=== PATIENT | female | born 1945 | race Caucasian/White ===

== ENCOUNTER 2017-03-15 14:29 | Inpatient (IN) ==
[2017-03-15] MEDS ORDERED: NUCYNTA 50 MG PO PRN (19:03)
[2017-03-15] MEDS ORDERED: Nitroglycerin 0.4 MG TAB.SUBL SL PRN (19:03)
[2017-03-15] MEDS: *HR* HYDROcodone/Acet 10/325 mg TABLET PO PRN (20:44)
[2017-03-16] MEDS: *HR* HYDROcodone/Acet 10/325 mg TABLET PO PRN ×4 (03:15→22:49)
[2017-03-16 05:22] LABS: INR 1.1; Prothrombin Time 12.2 Seconds (9.4-12.1)
[2017-03-16 05:27] LABS: Basophils % 0.1 %; Eosinophils # 0.1 K/mcL (0.0-0.6); Eosinophils % 0.9 %; Hematocrit 32.5 % (35.3-44.9); Hemoglobin 10.4 g/dL (11.5-15.4); Immature Granulocytes % 0.4 % (0-4); Lymphocytes # 2.7 K/mcL (0.6-4.6); Lymphocytes % 19.5 %; Mean Corpuscular Hemoglobin 31.4 pg (28.0-33.3); Mean Corpuscular Volume 98.2 fL (83.0-100.0); Mean Platelet Volume 9.3 fL (9.4-12.4); Platelet Count 194 K/mcL (140-400); Red Blood Count 3.31 M/mcL (3.82-4.97); Red Cell Distribution Width 15.9 % (11.5-14.5); Segmented Neutrophils % 72.1 %
[2017-03-16 05:32] LABS: Calcium 8.8 mg/dL (8.6-10.8); Potassium 4.3 mEq/L (3.5-4.5)
[2017-03-16] MEDS: Isosorbide MONOnitrate (24 HR) 30 MG TAB.ER.24H PO SCH (08:16)
[2017-03-16] MEDS: Multivit/Ca/Min/Fe/FA 1 TAB TABLET PO SCH (08:16)
[2017-03-16] MEDS: FISH OIL PO SCH (08:17)
[2017-03-16] MEDS: FLAX PO SCH (08:17)
[2017-03-16] MEDS: Aspirin Enteric Coated 81 MG Tablet PO SCH (08:17)
[2017-03-16] MEDS: [UNRECOGNIZED DRUG - OTHER] PO SCH (08:17)
[2017-03-16] MEDS: Ascorbic Acid 500 MG TABLET PO SCH (08:17)
[2017-03-16] MEDS: BORAGE PO SCH (08:17)
--- NOTE | 2017-03-16 14:43 | Internal Med History&Physical ---
Date of Encounter: 03/16/17 Time of Encounter: 14:41 Assessment and Plan (1) History of total hip replacement Current visit: Yes Status: Acute Asians here for rehabilitation. So far so good patient is stable Qualifiers: Laterality: right Qualified Code(s): Z96.641 - Presence of right artificial hip joint Internal Medicine - H&P: HPI Chief complaint: Patient had a right total hip replacement for OA Admitted From: Hospital to Hospital Transfer Plans for Post Hospital Care: Home History of present illness: Ms. Wilson is a 72 year old female Patient's had a long history of pain and had previously done I think in 2016 Past Med Surg Social Fam HX - Past Medical History Attestation: No The following information was validated with the patient. Medical history: coronary artery disease, GERD, hyperlipidemia, hypertension, osteoporosis, renal disease Psychiatric history: no psych history - Past Surgical History Surgical History: cholecystectomy, orthopedic, other - Social History Smoking Status: Never smoker Smokeless Tobacco Status: Yes Alcohol use: none Drug use: none - Family History Mother Living Status: Still Living Hx Family Neurologic Disorders: Yes (alzheimers) Internal Medicine - H&P: Meds Clopidogrel [Plavix] 75 mg PO DAILY 08/20/15 [History] Cyclobenzaprine [Flexeril] 10 mg PO TID 08/20/15 [History] Lansoprazole [Prevacid] 30 mg PO DAILY 08/20/15 [History] Zolpidem [Ambien] 10 mg PO HS PRN 08/20/15 [History] Atorvastatin [Lipitor] 40 mg PO HS 08/21/15 [History] Hydrocodone/Acetaminophen [[place] 10-325 Tablet] 1 tab PO Q6H PRN 08/21/15 [ History] Lisinopril [Zestril] 10 mg PO DAILY 08/21/15 [History] Metoprolol [Lopressor] 25 mg PO DAILY 08/21/15 [History] Nitroglycerin 0.4 mg SL PRN PRN 08/21/15 [History] Isosorbide MONOnitrate (24 HR) [Imdur] 30 mg PO DAILY 11/12/15 [History] Ascorbic Acid [Vitamin C] 1,000 mg PO DAILY 02/28/17 [History] Aspirin [Lo-Dose Aspirin EC] 81 mg PO DAILY 02/28/17 [History] Calcium Carbonate/Vitamin D3 [Calcium 600 + Vit D Tablet] 2 each PO DAILY [History] Diclofenac Sodium [Voltaren] 1 applic TP QID 02/28/17 [History] Fish Oil/Borage/Flax/Om3,6,9#1 [[place] 3-6-9 1,200 mg Softgel] 2 tab PO DAILY 02/11 [History] Multivit-Min/Iron/Folic/Lutein [Centrum Silver Women Tablet] 2 each PO DAILY 02/11 [History] Vitamin E Acetate [Vitamin E] 400 unit PO DAILY 02/28/17 [History] Tapentadol HCl [Nucynta] 50 mg PO Q4HR PRN 03/15/17 [History] Allergies Oxycodone Allergy (Verified 08/20/15 16:49) Vomiting Penicillins [PCN] Allergy (Verified 08/20/15 16:49) Rash All Systems PM: A 10-system review of systems was performed and is negative for pertinent findings except as documented above in the HPI. - Constitutional Vitals: Temp Pulse Resp BP Pulse Ox 98.4 F 77 16 106/62 95 03/16/17 11:00 03/16/17 11:00 03/16/17 11:00 03/16/17 11:00 03/16/17 11:00 - Head Head exam: Present: atraumatic, normocephalic - Neck Neck exam general surgery: Present: supple, trachea midline. Absent: lymphadenopathy - Respiratory Respiratory exam: Present: CTAB. Absent: accessory muscle use, rales, rhonchi, wheezes - Cardiovascular Cardiovascular exam: Present: RRR, +S1, +S2. Absent: diastolic murmur, gallop, rubs, systolic murmur - GI/Abdominal GI/Abdominal exam: Present: normal bowel sounds, soft (Patient had positive BM and also appetite is fairly good), no peritoneal signs. Absent: distended, tenderness Internal Med - H&P Results - Labs CBC & Chem 7: 03/16/17 04:50 03/16/17 04:50 Labs: Short CBC 03/16/17 Range/Units 04:50 WBC 13.9 H (4.3-11.1) K/mcL Hgb 10.4 L (11.5-15.4) g/dL Hct 32.5 L (35.3-44.9) % Plt Count 194 (140-400) K/mcL Neutrophils # 10.0 H (1.6-8.9) K/mcL BMP 03/16/17 04:50 Sodium 136 Potassium 4.3 Chloride 104 Carbon Dioxide 19 BUN 22 H Creatinine 1.25 H Glucose 99 Calcium 8.8 Labs look stable Will follow - VTE Documentation of Mechanical Device: Venous foot pump, device
--- NOTE | 2017-03-16 15:04 | Physcial Medicine-Consult Note ---
Date of Encounter: 03/16/17 Time of Encounter: 15:00 Physical Medicine - AP (1) History of total hip replacement Status: Acute Assessment and plan: 1. Ms. Wilson will continue with intensive PT/OT/TR. Her pain is a barrier to rehab. I suspect that she is suffering from a groin strain. We will have therapy apply heat to the adductor muscles prior to therapy. 2. DVT prophylaxis: continue with aspirin per her surgeons protocol. SCDs in place. 3. Pain: continue with norco as needed for pain. Code(s): Z96.649 - Presence of unspecified artificial hip joint SNOMED Code(s) : 847560138689 Physical Medicine - HPI - Data of Consult Consult date: 03/16/17 Requesting Physician: Carlton Zimmerman DO Primary Care Provider: Malik Grant DO - Consult Narrative Reason for consult: s/p left YANETH History of present illness: Ms. Wilson is a 72 year old female who was admitted for inpatient rehabilitation following a left total hip arthroplasty secondary to left hip osteoarthritis. She is complaining of pain in the left hip. No other complaints. CC: Carlton Zimmerman DO Past Med Surg Social Fam HX - Past Medical History Medical history: coronary artery disease, GERD, hyperlipidemia, hypertension, osteoporosis, renal disease Psychiatric history: no psych history - Past Surgical History Surgical History: cholecystectomy, orthopedic, other - Social History Smoking Status: Never smoker Smokeless Tobacco Status: Yes Alcohol use: none Drug use: none - Family History Mother Living Status: Still Living Hx Family Neurologic Disorders: Yes (alzheimers) Medications and Allergies Clopidogrel [Plavix] 75 mg PO DAILY 08/20/15 [History] Cyclobenzaprine [Flexeril] 10 mg PO TID 08/20/15 [History] Lansoprazole [Prevacid] 30 mg PO DAILY 08/20/15 [History] Zolpidem [Ambien] 10 mg PO HS PRN 08/20/15 [History] Atorvastatin [Lipitor] 40 mg PO HS 08/21/15 [History] Hydrocodone/Acetaminophen [[place] 10-325 Tablet] 1 tab PO Q6H PRN 08/21/15 [ History] Lisinopril [Zestril] 10 mg PO DAILY 08/21/15 [History] Metoprolol [Lopressor] 25 mg PO DAILY 08/21/15 [History] Nitroglycerin 0.4 mg SL PRN PRN 08/21/15 [History] Isosorbide MONOnitrate (24 HR) [Imdur] 30 mg PO DAILY 11/12/15 [History] Ascorbic Acid [Vitamin C] 1,000 mg PO DAILY 02/28/17 [History] Aspirin [Lo-Dose Aspirin EC] 81 mg PO DAILY 02/28/17 [History] Calcium Carbonate/Vitamin D3 [Calcium 600 + Vit D Tablet] 2 each PO DAILY [History] Diclofenac Sodium [Voltaren] 1 applic TP QID 02/28/17 [History] Fish Oil/Borage/Flax/Om3,6,9#1 [[place] 3-6-9 1,200 mg Softgel] 2 tab PO DAILY 02/11 [History] Multivit-Min/Iron/Folic/Lutein [Centrum Silver Women Tablet] 2 each PO DAILY 02/11 [History] Vitamin E Acetate [Vitamin E] 400 unit PO DAILY 02/28/17 [History] Tapentadol HCl [Nucynta] 50 mg PO Q4HR PRN 03/15/17 [History] Allergies Oxycodone Allergy (Verified 08/20/15 16:49) Vomiting Penicillins [PCN] Allergy (Verified 08/20/15 16:49) Rash - Constitutional Constitutional: Absent: anorexia, chills, fatigue - Cardiovascular Cardiovascular: Absent: chest pain, chest pain with activity, diaphoresis - Respiratory Respiratory: Absent: dyspnea - Gastrointestinal Gastrointestinal: Absent: constipation - Genitourinary Genitourinary: Absent: urinary incontinence - Musculoskeletal Musculoskeletal: Present: as per HPI, myalgias - Neurological Neurological: Absent: dizziness - Psychiatric Psychiatric: Absent: hallucinations Physical Medicine - Exam - Constitutional Vitals: Temp Pulse Resp BP Pulse Ox 98.4 F 77 16 106/62 95 03/16/17 11:00 03/16/17 11:00 03/16/17 11:00 03/16/17 11:00 03/16/17 11:00 - Head Head exam: Present: atraumatic, normal inspection - Respiratory Respiratory exam: Present: CTAB - Cardiovascular Cardiovascular exam: Present: RRR - GI/Abdominal GI/Abdominal exam: Present: normal bowel sounds, soft. Absent: tenderness - Extremities Exam Extremities exam: Absent: calf tenderness (Right hip incision with flor intact, no erythema, no drainage, no significant ecchymosis, motor strength 5/5) Physical Medicine - Results - Labs CBC & Chem 7: 03/16/17 04:50 03/16/17 04:50 Labs: Short CBC 03/16/17 Range/Units 04:50 WBC 13.9 H (4.3-11.1) K/mcL Hgb 10.4 L (11.5-15.4) g/dL Hct 32.5 L (35.3-44.9) % Plt Count 194 (140-400) K/mcL Neutrophils # 10.0 H (1.6-8.9) K/mcL BMP 03/16/17 04:50 Sodium 136 Potassium 4.3 Chloride 104 Carbon Dioxide 19 BUN 22 H Creatinine 1.25 H Glucose 99 Calcium 8.8 Consult Discharge Plan - Plan Referrals: Malik Grant DO [Primary Care Provider] -
[2017-03-17] MEDS: *HR* HYDROcodone/Acet 10/325 mg TABLET PO PRN ×4 (05:11→22:14)
[2017-03-17] MEDS: Ascorbic Acid 500 MG TABLET PO SCH (09:26)
[2017-03-17] MEDS: [UNRECOGNIZED DRUG - OTHER] PO SCH (09:27)
[2017-03-17] MEDS: Multivit/Ca/Min/Fe/FA 1 TAB TABLET PO SCH (09:27)
[2017-03-17] MEDS: FISH OIL PO SCH (09:27)
[2017-03-17] MEDS: FLAX PO SCH (09:27)
[2017-03-17] MEDS: BORAGE PO SCH (09:27)
[2017-03-17] MEDS: Isosorbide MONOnitrate (24 HR) 30 MG TAB.ER.24H PO SCH (09:27)
[2017-03-17] MEDS: Aspirin Enteric Coated 81 MG Tablet PO SCH (09:27)
--- NOTE | 2017-03-17 14:25 | Internal Med Progress Note ---
Date of Encounter: 03/17/17 Time of Encounter: 14:23 - Assessment and plan (1) History of total hip replacement Current Visit: Yes Status: Acute Assessment and plan: Surgeon's clinic Qualifiers: Laterality: right Qualified Code(s): Z96.641 - Presence of right artificial hip joint - Time Spent With Patient less than 15 minutes - Subjective Interval history: Only complaint is pain - Constitutional Vitals: Temp Pulse Resp BP Pulse Ox 97.0 F L 90 16 116/58 94 03/17/17 07:06 03/17/17 13:06 03/17/17 13:06 03/17/17 13:06 03/17/17 13:06 - Head Head exam: Present: atraumatic, normal inspection, normocephalic - Neck Neck exam general surgery: Present: supple, trachea midline. Absent: lymphadenopathy - Respiratory Respiratory exam: Present: CTAB. Absent: accessory muscle use, rales, rhonchi, wheezes - Cardiovascular Cardiovascular exam: Present: RRR, +S1, +S2. Absent: diastolic murmur, gallop, rubs, systolic murmur Internal Medicine: Result - Labs CBC & Chem 7: 03/16/17 04:50 03/16/17 04:50 Labs: Actually looks pretty good - ABG Interpretation ABG results: PT/INR, D-dimer PT 12.2 Seconds (9.4-12.1) H 03/16/17 04:50 - VTE Documentation of Mechanical Device: Graduated compression elastic hosiery Consult Discharge Plan - Plan Referrals: Malik Grant DO [Primary Care Provider] -
[2017-03-18] MEDS: *HR* HYDROcodone/Acet 10/325 mg TABLET PO PRN ×5 (04:31→22:21)
[2017-03-18] MEDS: Isosorbide MONOnitrate (24 HR) 30 MG TAB.ER.24H PO SCH (08:22)
[2017-03-18] MEDS: Ascorbic Acid 500 MG TABLET PO SCH (08:22)
[2017-03-18] MEDS: Aspirin Enteric Coated 81 MG Tablet PO SCH (08:22)
[2017-03-18] MEDS: Multivit/Ca/Min/Fe/FA 1 TAB TABLET PO SCH (08:22)
[2017-03-18] MEDS: FLAX PO SCH (08:23)
[2017-03-18] MEDS: [UNRECOGNIZED DRUG - OTHER] PO SCH (08:23)
[2017-03-18] MEDS: FISH OIL PO SCH (08:23)
[2017-03-18] MEDS: BORAGE PO SCH (08:23)
--- NOTE | 2017-03-18 14:16 | Internal Med Progress Note ---
Date of Encounter: 03/18/17 Time of Encounter: 14:15 - Assessment and plan (1) History of total hip replacement Current Visit: Yes Status: Acute Assessment and plan: Patient is working with a therapist . Qualifiers: Laterality: right Qualified Code(s): Z96.641 - Presence of right artificial hip joint - Time Spent With Patient less than 15 minutes - Subjective Interval history: Only complaint is pain. Pain is improved patient looks good cooperating fully with the therapist - Constitutional Vitals: Temp Pulse Resp BP Pulse Ox 98 F 92 18 117/71 99 03/18/17 06:51 03/18/17 06:51 03/18/17 06:51 03/18/17 07:59 03/18/17 06:51 - Head Head exam: Present: atraumatic, normal inspection, normocephalic - Neck Neck exam general surgery: Present: supple, trachea midline. Absent: lymphadenopathy - Respiratory Respiratory exam: Present: CTAB. Absent: accessory muscle use, rales, rhonchi, wheezes - Cardiovascular Cardiovascular exam: Present: RRR, +S1, +S2. Absent: diastolic murmur, gallop, rubs, systolic murmur Internal Medicine: Result - Labs CBC & Chem 7: 03/16/17 04:50 03/16/17 04:50 Labs: Labs look stable - ABG Interpretation ABG results: PT/INR, D-dimer PT 12.2 Seconds (9.4-12.1) H 03/16/17 04:50 - VTE Documentation of Mechanical Device: Graduated compression elastic hosiery Consult Discharge Plan - Plan Referrals: Malik Grant DO [Primary Care Provider] -
[2017-03-19] MEDS: *HR* HYDROcodone/Acet 10/325 mg TABLET PO PRN ×5 (02:25→20:15)
[2017-03-19] MEDS: Multivit/Ca/Min/Fe/FA 1 TAB TABLET PO SCH (09:15)
[2017-03-19] MEDS: Aspirin Enteric Coated 81 MG Tablet PO SCH (09:16)
[2017-03-19] MEDS: Ascorbic Acid 500 MG TABLET PO SCH (09:16)
[2017-03-19] MEDS: Isosorbide MONOnitrate (24 HR) 30 MG TAB.ER.24H PO SCH (09:16)
[2017-03-19] MEDS: FISH OIL PO SCH (09:17)
[2017-03-19] MEDS: FLAX PO SCH (09:17)
[2017-03-19] MEDS: BORAGE PO SCH (09:17)
[2017-03-19] MEDS: [UNRECOGNIZED DRUG - OTHER] PO SCH (09:17)
[2017-03-20] MEDS: *HR* HYDROcodone/Acet 10/325 mg TABLET PO PRN ×4 (01:16→19:52)
[2017-03-20] MEDS: Multivit/Ca/Min/Fe/FA 1 TAB TABLET PO SCH (08:17)
[2017-03-20] MEDS: Isosorbide MONOnitrate (24 HR) 30 MG TAB.ER.24H PO SCH (08:17)
[2017-03-20] MEDS: Aspirin Enteric Coated 81 MG Tablet PO SCH (08:18)
[2017-03-20] MEDS: Ascorbic Acid 500 MG TABLET PO SCH (08:18)
[2017-03-20] MEDS: FLAX PO SCH (08:19)
[2017-03-20] MEDS: [UNRECOGNIZED DRUG - OTHER] PO SCH (08:19)
[2017-03-20] MEDS: BORAGE PO SCH (08:19)
[2017-03-20] MEDS: FISH OIL PO SCH (08:19)
--- NOTE | 2017-03-20 10:25 | Internal Med Progress Note ---
Date of Encounter: 03/20/17 Time of Encounter: 10:24 - Assessment and plan (1) History of total hip replacement Current Visit: Yes Status: Acute Assessment and plan: Dressings clean and dry patient is progressing her only complaint is pain. Qualifiers: Laterality: right Qualified Code(s): Z96.641 - Presence of right artificial hip joint - Subjective Interval history: Only complaint is pain. Pain is improved patient looks good cooperating fully with the therapist. Tuesday patient's arresting and pain is improved because of not doing therapy today - Constitutional Vitals: Temp Pulse Resp BP Pulse Ox 98.2 F 93 18 96/56 95 03/20/17 07:10 03/20/17 07:10 03/20/17 07:10 03/20/17 07:10 03/20/17 07:10 - Head Head exam: Present: atraumatic, normal inspection, normocephalic - Neck Neck exam general surgery: Present: supple, trachea midline. Absent: lymphadenopathy - Cardiovascular Cardiovascular exam: Present: RRR, +S1, +S2. Absent: diastolic murmur, gallop, rubs, systolic murmur Internal Medicine: Result - Labs CBC & Chem 7: 03/16/17 04:50 03/16/17 04:50 Labs: Lab is stable - ABG Interpretation ABG results: PT/INR, D-dimer PT 12.2 Seconds (9.4-12.1) H 03/16/17 04:50 - VTE Documentation of Mechanical Device: Intermittent pneumatic compression device Consult Discharge Plan - Plan Referrals: Malik Grant DO [Primary Care Provider] -
[2017-03-21] MEDS: *HR* HYDROcodone/Acet 10/325 mg TABLET PO PRN ×6 (01:47→23:25)
[2017-03-21 06:07] LABS: Basophils % 0.5 %; Eosinophils # 0.3 K/mcL (0.0-0.6); Eosinophils % 3.5 %; Hematocrit 28.4 % (35.3-44.9); Hemoglobin 8.9 g/dL (11.5-15.4); Immature Granulocytes % 0.6 % (0-4); Lymphocytes # 2.4 K/mcL (0.6-4.6); Lymphocytes % 27.6 %; Mean Corpuscular HGB Conc 31.3 g/dL (31.6-35.5); Mean Corpuscular Hemoglobin 30.5 pg (28.0-33.3); Mean Corpuscular Volume 97.3 fL (83.0-100.0); Mean Platelet Volume 9.1 fL (9.4-12.4); Monocytes % 11.3 %; Neutrophils # 4.9 K/mcL (1.6-8.9); Platelet Count 252 K/mcL (140-400); Red Blood Count 2.92 M/mcL (3.82-4.97); Red Cell Distribution Width 14.7 % (11.5-14.5); Segmented Neutrophils % 56.5 %
[2017-03-21 06:17] LABS: Calcium 8.9 mg/dL (8.6-10.8); Potassium 4.5 mEq/L (3.5-4.5)
[2017-03-21] MEDS: Ascorbic Acid 500 MG TABLET PO SCH (08:09)
[2017-03-21] MEDS: Multivit/Ca/Min/Fe/FA 1 TAB TABLET PO SCH (08:09)
[2017-03-21] MEDS: Isosorbide MONOnitrate (24 HR) 30 MG TAB.ER.24H PO SCH (08:09)
[2017-03-21] MEDS: Aspirin Enteric Coated 81 MG Tablet PO SCH (08:09)
[2017-03-21] MEDS: [UNRECOGNIZED DRUG - OTHER] PO SCH (08:12)
[2017-03-21] MEDS: FISH OIL PO SCH (08:12)
[2017-03-21] MEDS: FLAX PO SCH (08:12)
[2017-03-21] MEDS: BORAGE PO SCH (08:12)
--- NOTE | 2017-03-21 15:23 | Internal Med Progress Note ---
Date of Encounter: 03/21/17 Time of Encounter: 15:21 - Assessment and plan (1) History of total hip replacement Current Visit: Yes Status: Acute Assessment and plan: Doing well pain is a little better controlled patient will be made independent in the room. She walked 150 feet Qualifiers: Laterality: right Qualified Code(s): Z96.641 - Presence of right artificial hip joint - Time Spent With Patient less than 15 minutes - Subjective Interval history: Only complaint is pain. Pain is improved patient looks good cooperating fully with the therapist. Tuesday patient's .patient walked 150 feet yesterday she shall make her independent in the room tomorrow resting and pain is improved because of not doing therapy today - Constitutional Vitals: Temp Pulse Resp BP Pulse Ox 98.2 F 90 16 94/63 94 03/21/17 06:45 03/21/17 06:45 03/21/17 06:45 03/21/17 06:45 03/21/17 06:45 - Head Head exam: Present: atraumatic, normal inspection, normocephalic - Neck Neck exam general surgery: Present: supple, trachea midline. Absent: lymphadenopathy - Respiratory Respiratory exam: Present: CTAB. Absent: accessory muscle use, rales, rhonchi, wheezes - Cardiovascular Cardiovascular exam: Present: RRR, +S1, +S2. Absent: diastolic murmur, gallop, rubs, systolic murmur Internal Medicine: Result - Labs CBC & Chem 7: 03/21/17 05:45 03/21/17 05:45 Labs: Short CBC 03/21/17 Range/Units 05:45 WBC 8.6 (4.3-11.1) K/mcL Hgb 8.9 L D (11.5-15.4) g/dL Hct 28.4 L (35.3-44.9) % Plt Count 252 (140-400) K/mcL Neutrophils # 4.9 (1.6-8.9) K/mcL BMP 03/21/17 05:45 Sodium 138 Potassium 4.5 Chloride 105 Carbon Dioxide 23 BUN 24 H Creatinine 1.16 H Glucose 96 Calcium 8.9 Stable - ABG Interpretation ABG results: PT/INR, D-dimer PT 12.2 Seconds (9.4-12.1) H 03/16/17 04:50 - VTE Documentation of Mechanical Device: Intermittent pneumatic compression device Consult Discharge Plan - Plan Referrals: Malik Grant DO [Primary Care Provider] -
[2017-03-22] MEDS: *HR* HYDROcodone/Acet 10/325 mg TABLET PO PRN ×4 (06:43→22:51)
[2017-03-22] MEDS: Isosorbide MONOnitrate (24 HR) 30 MG TAB.ER.24H PO SCH (08:31)
[2017-03-22] MEDS: Ascorbic Acid 500 MG TABLET PO SCH (08:32)
[2017-03-22] MEDS: Aspirin Enteric Coated 81 MG Tablet PO SCH (08:33)
[2017-03-22] MEDS: Multivit/Ca/Min/Fe/FA 1 TAB TABLET PO SCH (08:33)
[2017-03-22] MEDS: FISH OIL PO SCH (08:34)
[2017-03-22] MEDS: FLAX PO SCH (08:34)
[2017-03-22] MEDS: [UNRECOGNIZED DRUG - OTHER] PO SCH (08:34)
[2017-03-22] MEDS: BORAGE PO SCH (08:34)
--- NOTE | 2017-03-22 11:28 | Discharge Summary ---
Date of Encounter: 03/22/17 Time of Encounter: 11:26 - Discharge Diagnosis (1) History of total hip replacement Priority: Primary Status: Acute Comments: Patient is recovering and working well. She will be discharged home and will be doing Qualifiers: Laterality: right Qualified Code(s): Z96.641 - Presence of right artificial hip joint - Discharge Medications Home Medications: Clopidogrel [Plavix] 75 mg PO DAILY 08/20/15 [History] Cyclobenzaprine [Flexeril] 10 mg PO TID 08/20/15 [History] Lansoprazole [Prevacid] 30 mg PO DAILY 08/20/15 [History] Zolpidem [Ambien] 10 mg PO HS PRN 08/20/15 [History] Atorvastatin [Lipitor] 40 mg PO HS 08/21/15 [History] Hydrocodone/Acetaminophen [[place] 10-325 Tablet] 1 tab PO Q6H PRN 08/21/15 [ History] Lisinopril [Zestril] 10 mg PO DAILY 08/21/15 [History] Metoprolol [Lopressor] 25 mg PO DAILY 08/21/15 [History] Nitroglycerin 0.4 mg SL PRN PRN 08/21/15 [History] Isosorbide MONOnitrate (24 HR) [Imdur] 30 mg PO DAILY 11/12/15 [History] Ascorbic Acid [Vitamin C] 1,000 mg PO DAILY 02/28/17 [History] Aspirin [Lo-Dose Aspirin EC] 81 mg PO DAILY 02/28/17 [History] Calcium Carbonate/Vitamin D3 [Calcium 600 + Vit D Tablet] 2 each PO DAILY [History] Diclofenac Sodium [Voltaren] 1 applic TP QID 02/28/17 [History] Fish Oil/Borage/Flax/Om3,6,9#1 [[place] 3-6-9 1,200 mg Softgel] 2 tab PO DAILY 02/11 [History] Multivit-Min/Iron/Folic/Lutein [Centrum Silver Women Tablet] 2 each PO DAILY 02/11 [History] Vitamin E Acetate [Vitamin E] 400 unit PO DAILY 02/28/17 [History] Tapentadol HCl [Nucynta] 50 mg PO Q4HR PRN 03/15/17 [History] Allergies/Adverse Reactions: Allergies Oxycodone Allergy (Verified 08/20/15 16:49) Vomiting Penicillins [PCN] Allergy (Verified 08/20/15 16:49) Rash Date of admission: 03/15/17 17:49 Primary care physician: Malik Grant DO Consults: 03/15/17 19:07 Consult to Occupational Therapy [CONS] Routine Comment: Evaluate, develop and implement POC Consult to Physical Therapy [CONS] Routine Comment: Evaluate, develop and implement POC Consult to Recreational Therapy [CONS] Routine Comment: Evaluate, develop and implement POC Discharging clinician: Carlton Zimmerman Anticipated date of discharge: 03/23/17 - Patient Status Disposition: Home Health Service Condition: Good Functional capacity at discharge: uses cane/walker Overall status at discharge: patient is progressing back to baseline - Discharge Instructions Follow Up With: Malik Grant DO [Primary Care Provider] - - Diet and Activity Activity: ambulate only with your walker Interval History: She was brought here postop and has done very well rehabilitation Hospital course: Ms. Wilson is a 72 year old female Who arrived here status post surgery for total hip has worked well. Only complaint is back pain which has improved - Time Spent with Patient Total time spent providing and/or coordinating discharge services: Less than 30 minutes - Constitutional Vitals: Temp Pulse Resp BP Pulse Ox 97.3 F L 102 16 127/67 95 03/22/17 07:17 03/22/17 07:17 03/22/17 07:17 03/22/17 07:17 03/22/17 07:17 - Head Head exam: Present: atraumatic, normal inspection, normocephalic - Neck Neck exam general surgery: Present: supple, trachea midline. Absent: lymphadenopathy - Respiratory Respiratory exam: Present: CTAB. Absent: accessory muscle use, rales, rhonchi, wheezes - Cardiovascular Cardiovascular exam: Present: RRR, +S1, +S2. Absent: diastolic murmur, gallop, rubs, systolic murmur - VTE Documentation of Mechanical Device: Intermittent pneumatic compression device
--- NOTE | 2017-03-22 11:32 | Physician Discharge Referral ---
Home Health/Hosp Referral Info Transfer to: Home Health Provider in Charge Post Discharge: PCP - Diagnosis (1) History of total hip replacement Priority: Primary Status: Acute - Respiratory Orders Smoking Cessation: Smoking cessation has been advised. For more information, call the [place] Tobacco Quit Line at 7-452-LZRZ-NOW. - Diet/Nutrition Diet/Nutrition Orders: Regular - Activity Activity Orders: Walker - Services Needed Following services are medically necessary services: Nursing, Physical Therapy - Transfer Medications Home Medications: Clopidogrel [Plavix] 75 mg PO DAILY 08/20/15 [History] Cyclobenzaprine [Flexeril] 10 mg PO TID 08/20/15 [History] Lansoprazole [Prevacid] 30 mg PO DAILY 08/20/15 [History] Zolpidem [Ambien] 10 mg PO HS PRN 08/20/15 [History] Atorvastatin [Lipitor] 40 mg PO HS 08/21/15 [History] Hydrocodone/Acetaminophen [[place] 10-325 Tablet] 1 tab PO Q6H PRN 08/21/15 [ History] Lisinopril [Zestril] 10 mg PO DAILY 08/21/15 [History] Metoprolol [Lopressor] 25 mg PO DAILY 08/21/15 [History] Nitroglycerin 0.4 mg SL PRN PRN 08/21/15 [History] Isosorbide MONOnitrate (24 HR) [Imdur] 30 mg PO DAILY 11/12/15 [History] Ascorbic Acid [Vitamin C] 1,000 mg PO DAILY 02/28/17 [History] Aspirin [Lo-Dose Aspirin EC] 81 mg PO DAILY 02/28/17 [History] Calcium Carbonate/Vitamin D3 [Calcium 600 + Vit D Tablet] 2 each PO DAILY [History] Diclofenac Sodium [Voltaren] 1 applic TP QID 02/28/17 [History] Fish Oil/Borage/Flax/Om3,6,9#1 [[place] 3-6-9 1,200 mg Softgel] 2 tab PO DAILY 02/11 [History] Multivit-Min/Iron/Folic/Lutein [Centrum Silver Women Tablet] 2 each PO DAILY 02/11 [History] Vitamin E Acetate [Vitamin E] 400 unit PO DAILY 02/28/17 [History] Tapentadol HCl [Nucynta] 50 mg PO Q4HR PRN 03/15/17 [History] Allergies/Adverse Reactions: Allergies Oxycodone Allergy (Verified 08/20/15 16:49) Vomiting Penicillins [PCN] Allergy (Verified 08/20/15 16:49) Rash Certification: Further, I certify that my clinical findings support that this patient is homebound (i.e. absences from home require considerable and taxing effort and are for medical reasons or orthodox services or infrequently or short duration when for other reasons) because: Homebound Reason: Patient requires assistance of a person or device to safely leave home Attestation: My signature below is to certify that this patient is under my care and that I, or nurse practitioner, or a physician's paraprofessional education assistant working with me, has a face-to -face encounter with this patient.
[2017-03-23] MEDS: *HR* HYDROcodone/Acet 10/325 mg TABLET PO PRN ×2 (03:24→08:02)
[2017-03-23 07:53] VITALS: BP 101/56
[2017-03-23] MEDS: Aspirin Enteric Coated 81 MG Tablet PO SCH (08:01)
[2017-03-23] MEDS: Isosorbide MONOnitrate (24 HR) 30 MG TAB.ER.24H PO SCH (08:01)
[2017-03-23] MEDS: Ascorbic Acid 500 MG TABLET PO SCH (08:02)
[2017-03-23] MEDS: Multivit/Ca/Min/Fe/FA 1 TAB TABLET PO SCH (08:02)
== END 2017-03-23 13:19 | disposition home health service (06) | DRG 561 ==
LOC: INPGRE 17:49
PROVIDERS: ADMIT Internal Medicine; ATTEND Internal Medicine